=== PATIENT | female | born 1965 | race Caucasian/White ===

== ENCOUNTER → 2021-09-29 | Outpatient (CLI) | payer BC ==
[~2021-09-29] MED LIST: CALCIUM PO; MOBIC15 MG PO; PERCOCET 10-321 EACH PO; PRAVACHOL20 MG PO; PROTONIX 40 MG40 M1 PO; SYNTHROID25 MCG PO; XARELTO10 MG PO
== END ==
LOC: HEART CORB 09-26 09:15
DX: I25.10 Atherosclerotic heart disease of native coronary artery without angina pectoris (principal); R07.2 Precordial pain; R06.02 Shortness of breath; E78.5 Hyperlipidemia, unspecified; I10 Essential (primary) hypertension; Z80.3 Family history of malignant neoplasm of breast
CPT/HCPCS: 78452; A9502; J2785